=== PATIENT | male | born 1980 | race Caucasian/White ===

== ENCOUNTER → 2019-08-18 | Outpatient (CLI) | payer BC ==
--- NOTE | 2019-08-19 09:53 | PCVCIMAG ---
APPROVED REPORT Study performed: 08/18/2019 11:15:42 Exam: Stress Echocardiogram Indication: Hypertension, Hyperlipidemia Patient Location: Echo lab Stress Nurse: Nely Jara RN Status: routine Ht: 5 ft 9 in HR: 76 bpm BP: 130/100 mmHg Rhythm: NSR Medical History Medical History: Strong Family History Procedure The patient underwent an Exercise Stress Test using the Forrest Protocol. Blood pressure, heart rate, and EKG were monitored. An Echocardiogram was performed by electrical equipment technician in four stages in quad fashion. At peak stress, four selected images were obtained and placed side by side with resting images for comparison. Stress Test Details Stress Test: Exercise stress testing was performed using a Forrest protocol. HR Resting HR: 76 bpmMax Heart Rate (APMHR): 180 bpm Max HR Achieved: 173 bpmTarget HR (85% APMHR): 153 bpm % of APMHR: 96 Recovery HR: 100 bpm HR response to stress: Normal HR response to stress BP Resting BP: 130/100 mmHg Max BP: 204/104 mmHg Recovery BP: 162/96 mmHg BP response to stress: Normal blood pressure response to stress. ECG Resting ECG: Sinus Rhythm Stress ECG: Sinus Rhythm Recovery ECG: Sinus Rhythm Clinical Reason for Termination: Maximal effort Exercise duration: 15 min sec Highest Stage Achieved: Stage 5: 5.0 mph at 18% grade. Exercise capacity: 17.50 METs Overall Exercise Capacity for Age: Excellent Stress ECG Conclusion 1. Subjectively negative for ischemia 2. Electrocardiographic evidence of ST segment depressions in for fill criteria for ischemia 3. Excellent functional capacity Pre-Stress Echo The resting Echocardiogram showed normal left ventricular contractility with an estimated Ejection Fraction of about 55-60%. Normal wall motion in all segments on baseline images. Post-Stress Echo The stress Echocardiogram showed normal left ventricular contractility with an estimated Ejection Fraction of about 65-70%. Normal augmentation of wall motion in all segments on post stress images. Clinical No clinical or ECG evidence for ischemia. Conclusion Clinical Response: Non-ischemic Exercise Capacity: Superior Stress ECG Response: Non-ischemic Stress Echo Images: Non-ischemic The left ventricle is normal in size and wall thickness in both the rest and stress images. Trace Triscuspid regurgitation. No other significant valvular abnormalities. 1. Low risk study based on no wall motion abnormalities occurring during stress. The presence of some ST segment changes are suggestive but in absence of wall motion abnormalities are not consistent with a hemodynamically significant lesion. Other Information Study Quality: Good <Conclusion> The left ventricle is normal in size and wall thickness in both the rest and stress images. Trace Triscuspid regurgitation. No other significant valvular abnormalities. 1. Low risk study based on no wall motion abnormalities occurring during stress. The presence of some ST segment changes are suggestive but in absence of wall motion abnormalities are not consistent with a hemodynamically significant lesion.
== END | disposition home or self-care (01) ==
LOC: PCVCIMAG 10:59
PROVIDERS: ATTEND Internal Medicine
DX: I10 Essential (primary) hypertension (principal); R93.1 Abnormal findings on diagnostic imaging of heart and coronary circulation; E78.5 Hyperlipidemia, unspecified; J45.909 Unspecified asthma, uncomplicated; Z98.52 Vasectomy status; Z88.0 Allergy status to penicillin
CPT/HCPCS: 93325; 93351